=== PATIENT | male | born 1990 | race African-American/Black ===

== ENCOUNTER 2016-05-06 23:44 | Emergency (ER) | payer MEDICAID ==
[2016-05-07] MEDS ORDERED: Aspirin 81mg Chewable Tab PO STA (00:20)
[2016-05-07] MEDS ORDERED: Aspirin 81mg Chewable Tab ONE (00:21)
--- NOTE | 2016-05-07 00:25 | ED Physician Chart ---
Chief Complaint/HPI - Patient Information Date Seen:: 05/07/16 Time Seen:: 00:20 Chief Complaint:: cp History of Present Illness:: pt says hes been having anterior cp x 1-2 weeks which is worse lately. he says he has tingly feeling in limbs. pt is not sob. no n/v. not sweaty. says he last saw his pmd 2 wks ago in [place]..had had some cp at that time he is on narcotics for back p x last year. He denies any street drug use and goes into a tirade. he specifically denies cocaine or c meth use. he seems rather avoidant about filling in details of his hx but he has seen a cards dr Balderrama.has a hx of a abnormal baseline ecg for which he gets monitoring ecg 2x/yr. he was thought might have had endocarditis 2 yrs ago but a echo was negative. he has no copy of photo on his iphone of his ecg and does not volunteer the info about prior ecg s/monitoring etc.. he says he is in the . he goes back and forth to [facility] frequently.. Allergies:: Allergies Allergy/AdvReac Type Severity Reaction Status Date / Time No Known Allergies Allergy Verified 05/07/16 00:13 Vitals:: Vital Signs - 8 hr 05/06/16 23:50 Temp 97.3 F HR 81 RR 18 BP 122/73 O2 Sat % 100 Historian:: Patient <Lonny Moise Andrea - Last Filed: 05/07/16 06:30> - Patient Information Allergies:: Allergies Allergy/AdvReac Type Severity Reaction Status Date / Time No Known Allergies Allergy Verified 05/07/16 00:13 Vitals:: Vital Signs - 8 hr 05/06/16 05/07/16 05/07/16 23:50 00:35 01:45 Temp 97.3 F 98.2 F HR 81 90 77 RR 18 16 BP 122/73 119/61 132/80 O2 Sat % 100 98 05/07/16 05/07/16 04:00 07:03 Temp HR 84 74 RR 17 18 BP 129/90 136/72 O2 Sat % 99 98 <Tod Patino - Last Filed: 05/07/16 13:07> Review of Systems - Review of Systems General/Constitutional: No fever, No chills, No weight loss, No weakness, No diaphoresis, No edema, No loss of appetite Skin: No skin lesions, No rash, No bruising Head: No headache, No light-headedness Eyes: No loss of vision, No pain, No diplopia ENT: No earache, No nasal drainage, No sore throat, No tinnitus Neck: No neck pain, No swelling, No thyromegaly, No stiffness, No mass noted Cardio Vascular: Chest pain, No palpitations, No PND, No orthopnea, No edema Pulmonary: No SOB, No cough, No sputum, No wheezing GI: No nausea, No vomiting, No diarrhea, No pain, No melena, No hematochezia, No constipation, No hematemesis G/U: No dysuria, No frequency, No hematuria Musculoskeletal: No bone or joint pain, No back pain, No muscle pain Endocrine: No polyuria, No polydipsia Psychiatric: No prior psych history, No depression, No anxiety, No suicidal ideation Hematopoietic: No bruising, No lymphadenopathy Allergic/Immuno: No urticaria, No angioedema Neurological: No syncope, No focal symptoms, No weakness, No paresthesia, No headache, No seizure, No dizziness, No confusion, No vertigo <Lonny Moise - Last Filed: 05/07/16 06:30> Past Medical History - Past Medical History Past Medical History: Other (abnormal ecg in past, chronic back pain x 1 yr) Social History: No Drug Use (denies cocaine or c meth) Medication: Reviewed <Lonny Moise - Last Filed: 05/07/16 06:30> Family Medical History - Family Member Grandmother Hx Family Hypertension: Yes Hx Family Diabetes: Yes <Lonny Moise - Last Filed: 05/07/16 06:30> Physical Exam - Physical Examination General/Constitutional: Awake, Well-developed, well-nourished, Alert, No distress, GCS 15, Non-toxic appearing, Ambulatory Other Gen/Cons comments:: mild obese. no sweaty. seems calm. no sob. very touchy about questions. Head: Atraumatic Eyes: Lids, conjuctiva normal, PERRL, EOMI Skin: Nl inspection, No rash, No skin lesions, No ecchymosis, Well hydrated, No lymphadenopathy ENMT: External ears, nose nl, Nasal exam nl, Lips, teeth, gums nl Neck: Nontender, Full ROM w/o pain, No JVD, No nuchal rigidity, No bruit, No mass, No stridor Respiratory: Nl effort/Exclusion, Clear to Auscultation, No Wheeze/Rhonchi/Rales Cardio Vascular: RRR, No murmur, gallop, rubs, NL S1 S2 GI: No tenderness/rebounding/guarding, No organomegaly, No hernia, Normal BS's, Nondistended, No mass/bruits, No McBurney tenderness : No CVA tenderness Extremities: No tenderness or effusion, Full ROM, normal strength in all extremities, No edema, Normal digits & nails Neuro/Psych: Alert/oriented, DTR's symmetric, Normal sensory exam, Normal motor strength, Judgement/insight normal, Mood normal, Normal gait, No focal deficits Misc: normal gait, Normal back, No paraspinal tenderness <Lonny Moise - Last Filed: 05/07/16 06:30> Labs/Radiology/EKG Results - Lab Results Results: Laboratory Tests 05/07/16 05/07/16 05/07/16 00:10 00:34 00:34 WBC 8.4 RBC 5.12 Hgb 14.6 Hct 42.8 MCV 83.5 MCH 28.5 MCHC Differential 34.1 RDW 12.6 Plt Count 335 MPV 7.2 Neutrophils % 61.4 Lymphocytes % 27.1 Monocytes % 9.0 Eosinophils % 1.6 Basophils % 0.9 ESR Sodium 137 Potassium 4.1 Chloride 103 Carbon Dioxide 27.4 Anion Gap 10.7 BUN 12 Creatinine 0.9 Est GFR ( Amer) > 60.0 Est GFR (Non-Af Amer) > 60.0 BUN/Creatinine Ratio 13.3 Glucose 108 H Calcium 9.8 Total Bilirubin 0.3 AST 21 ALT 35 Alkaline Phosphatase 89 Creatine Kinase 728 H Troponin I Total Protein 7.4 Albumin 4.2 Globulin 3.2 Albumin/Globulin Ratio 1.3 Urine Opiates Screen POSITIVE H Ur Barbiturates Screen NEGATIVE Ur Phencyclidine Scrn NEGATIVE Amphetamines Screen NEGATIVE U Methamphetamines Scrn POSITIVE H U Benzodiazepines Scrn NEGATIVE U Cocaine Metab Screen NEGATIVE U Cannabinoids Screen NEGATIVE 05/07/16 05/07/16 00:34 00:34 WBC RBC Hgb Hct MCV MCH MCHC Differential RDW Plt Count MPV Neutrophils % Lymphocytes % Monocytes % Eosinophils % Basophils % ESR 4 Sodium Potassium Chloride Carbon Dioxide Anion Gap BUN Creatinine Est GFR ( Amer) Est GFR (Non-Af Amer) BUN/Creatinine Ratio Glucose Calcium Total Bilirubin AST ALT Alkaline Phosphatase Creatine Kinase Troponin I < 0.01 L Total Protein Albumin Globulin Albumin/Globulin Ratio Urine Opiates Screen Ur Barbiturates Screen Ur Phencyclidine Scrn Amphetamines Screen U Methamphetamines Scrn U Benzodiazepines Scrn U Cocaine Metab Screen U Cannabinoids Screen - Radiology Results Results: cxr nad - EKG Interpretations EKG Time:: 23:55 Rhythm: nsr 78 [place]: 51 Rate: 78 Comments:: abnormal ecg given st elevations in 1,2,v3-4-5. given pt age and hx it seems far more likely this is a physiologic anomaly than acute NM <Lonny Moise - Last Filed: 05/07/16 06:30> - Lab Results Results: Laboratory Tests 05/07/16 05/07/16 05/07/16 00:10 00:34 00:34 WBC 8.4 RBC 5.12 Hgb 14.6 Hct 42.8 MCV 83.5 MCH 28.5 MCHC Differential 34.1 RDW 12.6 Plt Count 335 MPV 7.2 Neutrophils % 61.4 Lymphocytes % 27.1 Monocytes % 9.0 Eosinophils % 1.6 Basophils % 0.9 ESR Sodium 137 Potassium 4.1 Chloride 103 Carbon Dioxide 27.4 Anion Gap 10.7 BUN 12 Creatinine 0.9 Est GFR ( Amer) > 60.0 Est GFR (Non-Af Amer) > 60.0 BUN/Creatinine Ratio 13.3 Glucose 108 H Whole Bld Lactic Acid Calcium 9.8 Total Bilirubin 0.3 AST 21 ALT 35 Alkaline Phosphatase 89 Creatine Kinase 728 H CK-MB (CK-2) 2.5 Troponin I C-Reactive Protein Total Protein 7.4 Albumin 4.2 Globulin 3.2 Albumin/Globulin Ratio 1.3 Urine Opiates Screen POSITIVE H Ur Barbiturates Screen NEGATIVE Ur Phencyclidine Scrn NEGATIVE Amphetamines Screen NEGATIVE U Methamphetamines Scrn POSITIVE H U Benzodiazepines Scrn NEGATIVE U Cocaine Metab Screen NEGATIVE U Cannabinoids Screen NEGATIVE 03/16/17 03/16/17 03/16/17 00:34 00:34 00:34 WBC RBC Hgb Hct MCV MCH MCHC Differential RDW Plt Count MPV Neutrophils % Lymphocytes % Monocytes % Eosinophils % Basophils % ESR 4 Sodium Potassium Chloride Carbon Dioxide Anion Gap BUN Creatinine Est GFR ( Amer) Est GFR (Non-Af Amer) BUN/Creatinine Ratio Glucose Whole Bld Lactic Acid Calcium Total Bilirubin AST ALT Alkaline Phosphatase Creatine Kinase CK-MB (CK-2) Troponin I < 0.01 L C-Reactive Protein 1.2 H Total Protein Albumin Globulin Albumin/Globulin Ratio Urine Opiates Screen Ur Barbiturates Screen Ur Phencyclidine Scrn Amphetamines Screen U Methamphetamines Scrn U Benzodiazepines Scrn U Cocaine Metab Screen U Cannabinoids Screen 05/07/16 05/07/16 04:08 05:53 WBC RBC Hgb Hct MCV MCH MCHC Differential RDW Plt Count MPV Neutrophils % Lymphocytes % Monocytes % Eosinophils % Basophils % ESR Sodium Potassium Chloride Carbon Dioxide Anion Gap BUN Creatinine Est GFR ( Amer) Est GFR (Non-Af Amer) BUN/Creatinine Ratio Glucose Whole Bld Lactic Acid 1.09 Calcium Total Bilirubin AST ALT Alkaline Phosphatase Creatine Kinase CK-MB (CK-2) Troponin I < 0.01 L C-Reactive Protein Total Protein Albumin Globulin Albumin/Globulin Ratio Urine Opiates Screen Ur Barbiturates Screen Ur Phencyclidine Scrn Amphetamines Screen U Methamphetamines Scrn U Benzodiazepines Scrn U Cocaine Metab Screen U Cannabinoids Screen <Tod Patino - Last Filed: 05/07/16 13:07> Assessment - Assessment General Assessment: case dw dr galloway ...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 says just repeat the trop. rechk trop and echocardiogram ordered. will sign over to DR PATINO AT change of shift at 7am. <Lonny Moise - Last Filed: 05/07/16 06:30> - Assessment General Assessment: 0720 Patient states he has had constant chest pain for the last one week. Pain is across the inferior chest, radiates down the left arm and is 10/10 in severity. Has been diaphoretic and gets occasional shortness of breath. Non smoker. PMH: back pain. FH: negative. WD/WN in NAD. HEENT normal; Chest clear; Heart RR no murmur <Tod Patino - Last Filed: 05/07/16 13:07> ED Septic Shock - . Is Septic Shock (SBP<90, OR Lactate>4 mmol\L) present?: No - <6hrs of presentation: Vital Signs: Vital Signs - 8 hr 05/06/16 23:50 Temp 97.3 F HR 81 RR 18 BP 122/73 O2 Sat % 100 <Lonny Moise - Last Filed: 05/07/16 06:30> - <6hrs of presentation: Vital Signs: Vital Signs - 8 hr 05/06/16 05/07/16 05/07/16 23:50 00:35 01:45 Temp 97.3 F 98.2 F HR 81 90 77 RR 18 16 BP 122/73 119/61 132/80 O2 Sat % 100 98 05/07/16 05/07/16 04:00 07:03 Temp HR 84 74 RR 17 18 BP 129/90 136/72 O2 Sat % 99 98 <Tod Patino - Last Filed: 05/07/16 13:07> Reassessment (Disposition) - Reassessment Reassessment Condition:: Unchanged - Diagnosis Diagnosis:: 1 chest pain 2 abnormal ecg - LIKELY CHRONIC ANOMALLY 3 pos for c meth on his drug screen - Patient Disposition Admitted to:: Telemetry Condition at Disposition:: Unchanged <Lonny Moise - Last Filed: 05/07/16 06:30> - Reassessment Reassessment:: FAX'd two EKGs to Dr. Naseem Parker at about 0930; he called back saying EKGs looked like early repolarization Reassessment Condition:: Unchanged - Diagnosis Diagnosis:: atypical chest pain. Third troponin negative. - Aftercare/Follow up Instructions Aftercare/Follow-Up Instructions:: Refer to Discharge Instructions - Patient Disposition Discharge/Transfer:: Home Condition at Disposition:: Stable, Unchanged <Tod Patino - Last Filed: 05/07/16 13:07>
[2016-05-07 00:42] LABS: % BASOPHILS 0.9 % (0.0-2.0); % EOSINOPHILS 1.6 % (0.0-5.0); % LYMPHOCYTES 27.1 % (20.0-50.0); % NEUTROPHILS 61.4 % (40.0-80.0); HEMATOCRIT 42.8 % (39.0-49.0); HEMOGLOBIN 14.6 gm/dL (13.2-17.3); MEAN CELL VOLUME 83.5 fl (80-99); MEAN CORPUSCULAR HEMOGLOBIN 28.5 pg (26.0-30.0); MEAN CORPUSCULAR HGB CONC 34.1 pg (28.0-36.0); MEAN PLATELET VOLUME 7.2 fl; NEUTROPHILE ABSOLUTE 5.1 Th/cmm (1.8-8.0); PLATELET COUNT 335 Th/cmm (150-400); RED BLOOD COUNT 5.12 Mil/cmm (4.30-5.70); RED CELL DISTRIBUTION WIDTH 12.6 % (11.5-20.0); WHITE BLOOD COUNT 8.4 Th/cmm (4.8-10.8)
[2016-05-07 00:45] LABS: AMPHETAMINE URINE NEGATIVE (NEGATIVE); BARBITURATES URINE NEGATIVE (NEGATIVE)
[2016-05-07 00:55] LABS: ALB/GLOB RATIO 1.3 (1.0-1.8); ALKALINE PHOSPHATASE 89 U/L (34-104); ANION GAP 10.7 (7.0-16.0); BILIRUBIN,TOTAL 0.3 mg/dL (0.3-1.0); BUN - UREA NITROGEN 12 mg/dL (7-25); BUN/CREATININE RATIO 13.3; CALCIUM SERUM 9.8 mg/dL (8.6-10.3); CARBON DIOXIDE 27.4 mEq/L (21.0-31.0); CHLORIDE 103 mEq/L (98-107); CREATININE - SERUM 0.9 mg/dL (0.7-1.3); GLUCOSE 108 mg/dL (70-105); POTASSIUM SERUM 4.1 mEq/L (3.5-5.1); SGOT 21 U/L (13-39); SGPT/ALT 35 U/L (7-52); SODIUM SERUM 137 mEq/L (136-145)
[2016-05-07 01:22] LABS: CREATINE KINASE MB 2.5 ng/mL (0.6-6.3)
--- NOTE | 2016-05-07 10:18 | Diagnostic Imaging Report ---
Portable chest x-ray HISTORY: Pain The heart size is difficult to assess with portable technique in a poor inspiration. No acute focal pulmonary processes. No hilar or mediastinal abnormalities. IMPRESSION: No acute abnormalities
== END 2016-05-07 13:55 | disposition home or self-care (01) ==
LOC: ER 23:44
DX: R07.89 Other chest pain (principal); R94.31 Abnormal electrocardiogram [ECG] [EKG]; G89.29 Other chronic pain; M54.9 Dorsalgia, unspecified
CPT/HCPCS: 36415-UA; 71010-TC; 80053-TC; 82550-TC; 82553; 83605; 84484-TC; 85025-TC; 85652-TC; 86141-TC; 93005; Z7610